=== PATIENT | male | born 1985 | race African-American/Black ===

== ENCOUNTER 2017-09-06 04:54 | Emergency (ER) | payer SELFPAY ==
[2017-09-06] MEDS ORDERED: Metoprolol Tartrate 25 MG TAB ONE (05:37)
[2017-09-06] MEDS ORDERED: Metoprolol Tartrate 5 MG/5 ML VIAL ONE ×3 (05:38→06:24)
[2017-09-06 05:46] LABS: #Basophils 0.1 thou/uL (0.0-0.2); #Eosinphils 0.2 thou/uL (0.0-0.7); #Lymphocytes 4.2 thou/uL (1.20-3.40); #Monocytes 0.8 thou/uL (0.11-0.59); #Neutrophils 5.1 thou/uL (1.40-6.50); %Basophils 1.3 % (0.0-1.0); %Eosinophils 1.8 % (0.0-10.0); %Lymphocytes 40.5 % (21.0-51.0); %Monocytes 7.5 % (0.0-10.0); Hematocrit 51.7 % (42.0-52.0); Mean Platelet Volume 9.3 fL (7.4-10.4); Red Blood Cell (RBC) Count 5.94 mill/uL (4.70-6.10); White Blood Cell (WBC) Count 10.3 thou/uL (4.8-10.8)
[2017-09-06 06:00] LABS: Anion Gap 14 mmol/L (10-20); BUN (Urea Nitrogen) 13 mg/dL (8.9-20.6); Calc. Creatinine Clearance 0 mL/min (70-130); Calcium 9.6 mg/dL (7.8-10.44); Carbon Dioxide 23 mmol/L (22-29); Chloride 104 mmol/L (98-107); Estimated GFR-MDRD Greater than 90
[2017-09-06 06:06] LABS: Troponin I Less than 0.010 ng/mL (< 0.028)
--- NOTE | 2017-09-06 08:36 | RAD ---
PORTABLE CHEST: DATE: 09/06/17. PROVIDED CLINICAL HISTORY: Tachycardia. COMPARISON: 03/02/17. FINDINGS: Cardiac and mediastinal silhouette is within normal limits. No focal consolidation, pleural fluid, or pneumothorax apparent. IMPRESSION: No evidence for an acute cardiopulmonary process. POS: OFF
--- NOTE | 2017-09-07 11:50 | EKG ---
Test Reason : PALPITATIONS Blood Pressure : / mmHG Vent. Rate : 126 BPM Atrial Rate : 127 BPM P-R Int : 144 ms QRS Dur : 108 ms QT Int : 310 ms P-R-T Axes : 071 071 036 degrees QTc Int : 448 ms Sinus tachycardia with Fusion complexes Biatrial enlargement Incomplete right bundle branch block Nonspecific ST abnormality Abnormal ECG Confirmed by BALAJI RODRIGUEZ, JERE Gregory ([id number]), editor book ANGÉLICA DOWNEY ([id number]) on 09/07/2017 11:49:53 AM Referred By: Confirmed By:JERE CARPIO MD
== END 2017-09-06 06:30 | disposition home or self-care (01) ==
LOC: ERS 04:54
DX: R00.2 Palpitations (principal); F41.9 Anxiety disorder, unspecified; Z79.899 Other long term (current) drug therapy
CPT/HCPCS: 71010; 80048; 82553; 84484; 85025; 93005; 96374